=== PATIENT | male | born 1935 | race Caucasian/White ===

== ENCOUNTER 2024-03-10 07:33 | Day surgery (SDC) | payer MEDICARE, OTHER, SELFPAY ==
[2024-02-28 12:15] VITALS: BMI 22.4
[2024-03-10] VITALS (8 sets, daily range): BP systolic 147–183; BP diastolic 80–100; PULSE 53–78; RESP 12–18; TEMP 36.1–37.1; O2SAT 97–100; BMI 22.4
--- NOTE | 2024-03-10 | PATH_ITS ---
[facility] Accession Number: [id number] No. of containers..01 Tissue . 01 Material submitted: . bladder, dome - LEFT DOME BIOPSY . 01 Diagnosis: URINARY BLADDER, LEFT DOME, BIOPSY: Fragment of mildly inflamed urothelial mucosa with focal papillary hyperplasia, favor reactive-type. Negative for neoplasia or malignancy. MRV 03/17/2024 1554 Local . 01 Comment: Multiple deeper levels have been examined, supporting the diagnosis. . 01 Electronically signed: . Hortencia Zuniga MD, Pathologist NPI- [id number] . 01 Gross description: . LEFT DOME BIOPSY: Received in formalin is 1 fragment(s) of suarez, soft tissue measuring 0.4 x 0.4 x 0.2 cm submitted entirely in 1 cassette(s) /NATHALIA 03/13/2024 1839 Local . 01 Pathologist provided ICD-10: C67.9 . 01 CPT . 116728 Specimen Comment: A courtesy copy of this report has been sent to [phone] Performed at: 01 [facility] [address] [place] [address] Suite [facility], [place], [place] [id number] MD Vel Hemphill MD Phone: [phone]
[2024-03-10] MEDS: LACTATED RINGERS 1,000 ML 21 ML IV (08:14)
--- NOTE | 2024-03-10 08:32 | PM.PREOP ---
Pre-operative Note Interval Note History & Physical reviewed/Exam performed by Physician: Yes Changes to H&P: No
[2024-03-10] MEDS: CEFAZOLIN 2 GM/100 ML PREMIX 100 ML IV (09:20)
--- NOTE | 2024-03-10 09:31 | SUR.OPER ---
Lithotomy on padded OR bed, head on pillow, arms secured on padded arm boards at <90 degrees abduction. Legs secured in padded yellow fins stirrups.
[2024-03-10] MEDS: WATER FOR INJECTION,STERILE 20 ML, mitoMYcin 20 MG INTRAVESIC (10:05)
--- NOTE | 2024-03-10 10:09 | PM.OP.1 ---
Operative Date/Time/Diagnoses Date of procedure: 03/10/24 Time of procedure: 10:09 Pre-op diagnosis: 1. History of recurrent bladder cancer. 2. Suspicious urothelial lesion posterior dome. Post-op diagnosis: same Procedure & Clinicians Procedure: 1. Cystoscopy/bladder biopsy (cold resection of <0.5cm neoplasm)/fulguration. 2. Instillation mitomycin-C (20 mg). Same procedure as scheduled: Yes Indications: 1. History of recurrent urothelial carcinoma of the bladder. 2. Suspicious urothelial lesion left posterior dome. Surgeon: Akash Sanchez Click Yes if Unassisted: Yes Anesthesia Type: General Operative Notes Findings: 1. Urethra-normal caliber without annular stricture or lesion. 2. External sphincter-coapted with normal overlying urothelium and vascularity. 3. Prostate-5+ cm length with obstructing trilobar hyperplasia and normal overlying urothelium. 4. Bladder-severe trabeculation and cellule formation. Normal ureteral orifices bilaterally with clear efflux. The index lesion is identified at the left posterior dome. Remainder urothelium was unremarkable. Closure Type: not applicable Specimen(s): none sent (Cold resection bladder neoplasm-left posterior dome) Applied: catheter ([address] Cain catheter.) Estimated Blood Loss (mL): 0 Blood products transfused: none Procedure in detail: Patient was positioned in supine was administered general anesthesia. He was then repositioned in semilithotomy in the lower abdomen, genitalia, and groin were then prepped and draped in sterile fashion. Cy sounds were then used to calibrate the distal urethra. The resectoscope was then advanced under direct visualization with the findings as described above. The cold cup biopsy forceps were then fitted to the resectoscope and the index lesion is engaged and excised by cold resection. Reexamination revealed near complete removal. Cold cup biopsy was then removed and the button electrode and working element were then fitted to the resectoscope. The base and perimeter the cold resection was then cautery fulgurated for hemostasis in permanent of tissue destruction. The bladder was then left partially filled and the resectoscope was removed. A 16 [place] Cain catheter was inserted, the balloon inflated 10 cc in the bladder contents were drained. A 20 cc solution containing 20 mg of mitomycin C were then instilled in the bladder and the catheter plug secured for anticipated 2 hour postoperative retention. The patient was then repositioned in supine, was awakened, then transferred to [facility] awake and in stable condition. Complications: none Post-operative Condition: stable Disposition: PACU Plan for aftercare: 1. 2 hour retention of post resection mitomycin C per protocol. 2. Discharge home without catheter.
--- NOTE | 2024-03-10 10:45 | SUR.PHASEII ---
1040 - Received into phase 2. A&O x 3. at bedside. pt lying on left side. Will change sides every half hour and drain Mytomycin @ 1205. Pt and verbalize understanding. Upper dentures returned to pt.
--- NOTE | 2024-03-10 12:28 | SUR.PHASEII ---
1205 bladder drained per Mytomycin protocol. Cain dc'd and discharge inst given.
== END 2024-03-10 12:15 | disposition home or self-care (01) ==
PROVIDERS: PCP Family Medicine; Referring Provider Specialist; Visit Provider Specialist
PROC: 0TBB8ZZ Excision of Bladder, Via Natural or Artificial Opening Endoscopic (ICD-10-PCS; CPT 52224; principal; 2024-03-10 09:15)
DX: N32.9 Bladder disorder, unspecified (principal); N40.0 Benign prostatic hyperplasia without lower urinary tract symptoms; N13.8 Other obstructive and reflux uropathy; Z85.51 Personal history of malignant neoplasm of bladder
CPT/HCPCS: 52224 ×2; 93005; 93010; J0690; J2405; J2704; J3010; J9280